=== PATIENT | male | born 1975 | race Caucasian/White ===

== ENCOUNTER 2017-09-12 20:14 | Emergency (ER) | payer BC, OTHER ==
[2017-09-12] MEDS ORDERED: IBUPROFEN 800 MG TAB PO STA (21:23)
[2017-09-12] MEDS ORDERED: ACET/COD 300 MG/30 MG STARTER PACK 6 TAB BTL PO STA (21:24)
--- NOTE | 2017-09-12 21:27 | ED ---
ENT HPI - General Chief complaint: ENT Stated complaint: Sinus infection Time Seen by Provider: 09/12/17 21:12 Source: patient Mode of arrival: ambulatory Limitations: no limitations - History of Present Illness Initial comments: This patient is a 42-year-old man with history of dental caries who presents with maxillary facial pain. The pain came on number of hours ago. He states that he had some old doses of penicillin left, and he took 2 doses of that and has not had relief yet. He denies any fever or chills. Patient has not had any ocular symptoms. MD complaint: tooth pain Onset/Timin -: hour(s) Time: 11:00 Location: tooth # Severity: severe Quality: aching Consistency: constant Improves with: none Worsens with: none Context- Dental: history of dental caries Associated Symptoms: gum swelling, toothache - Related Data Previous Rx's Medication Instructions Recorded Amoxicillin 500 mg PO Q8H #21 capsule 09/12/17 Ibuprofen [Motrin] 600 mg PO Q8HR PRN #20 tab 09/12/17 Allergies Allergy/AdvReac Type Severity Reaction Status Date / Time No Known Allergies Allergy Verified 09/12/17 20:30 Review of Systems ROS Statement: Those systems with pertinent positive or pertinent negative responses have been documented in the HPI. ROS Other: All systems not noted in ROS Statement are negative. Constitutional: Denies: fever, chills Eyes: Denies: eye pain, vision change ENT: Reports: dental pain. Denies: ear pain, throat pain, hearing loss, congestion Respiratory: Denies: cough, dyspnea Cardiovascular: Denies: chest pain, palpitations Neurological: Denies: headache Past Medical History Past Medical History: No Reported History History of Any Multi-Drug Resistant Organisms: None Reported Past Surgical History: Hernia Repair Past Psychological History: No Psychological Hx Reported Smoking Status: Current every day smoker Past Alcohol Use History: None Reported Past Drug Use History: None Reported General Exam Limitations: no limitations General appearance: alert, in no apparent distress Head exam: Present: atraumatic, normocephalic, normal inspection Eye exam: Present: normal appearance, PERRL, EOMI. Absent: scleral icterus, conjunctival injection, nystagmus, periorbital swelling, periorbital tenderness ENT exam: Present: other ([place]) Neck exam: Present: normal inspection, full ROM. Absent: meningismus, lymphadenopathy Respiratory exam: Present: normal lung sounds bilaterally. Absent: respiratory distress, wheezes, rales, rhonchi, stridor Cardiovascular Exam: Present: regular rate, normal rhythm, normal heart sounds. Absent: systolic murmur, diastolic murmur, rubs, gallop Skin exam: Present: warm, dry, intact, normal color. Absent: rash Course Vital Signs 09/12/17 09/12/17 20:27 21:39 Temperature 98.6 F 98.5 F Pulse Rate 111 H 95 Respiratory 20 18 Rate Blood Pressure 147/80 148/90 O2 Sat by Pulse 99 99 Oximetry Disposition Clinical Impression: Pain due to dental caries Disposition: HOME SELF-CARE Condition: Good Instructions: Toothache (ED) Prescriptions: Amoxicillin 500 mg PO Q8H #21 capsule Ibuprofen [Motrin] 600 mg PO Q8HR PRN #20 tab PRN Reason: Pain Is patient prescribed a controlled substance at d/c from ED?: No Referrals: Inna Rodgers MD [Primary Care Provider] - 1-2 days
[2017-09-12 21:40] VITALS: PULSE 95; RESP 18; TEMP 98.5
[2017-09-12 21:42] VITALS: BP 148/90
== END 2017-09-12 21:39 | disposition home or self-care (01) ==
LOC: EC 20:14
DX: K02.9 Dental caries, unspecified (principal); K08.89 Other specified disorders of teeth and supporting structures; F17.200 Nicotine dependence, unspecified, uncomplicated
CPT/HCPCS: 99283

== ENCOUNTER → 2021-06-03 | Outpatient (CLI) | payer BC ==
--- NOTE | 2021-06-03 15:38 | NM ---
EXAMINATION TYPE: NM bone scan whole body DATE OF EXAM: 06/03/2021 COMPARISON: Thoracic spine from outside institution dated 23 May 2021 HISTORY: Pain in low back, fracture Delayed whole-body scanning was performed following the injection of 22 mCi Tc 99m MDP. Images acqui red 3 hours post injection. FINDINGS: Bandlike area of uptake is present at approximately T11 level consistent with compression fracture. S oft tissue uptake is within normal limits. There is a spinal curvature. Uptake within the shoulders, feet, sternoclavicular joints is likely degenerative. Uptake in the maxilla and mandible is likely du e to periodontal disease. IMPRESSION: Findings insistent with compression fracture T11 level
== END | disposition home or self-care (01) ==
LOC: RADNMMAIN 10:51
PROVIDERS: ATTEND Physical Medicine & Rehabilitation
DX: M48.54XA Collapsed vertebra, not elsewhere classified, thoracic region, initial encounter for fracture (principal); M47.816 Spondylosis without myelopathy or radiculopathy, lumbar region
CPT/HCPCS: 78306; A9503

== ENCOUNTER → 2024-04-22 | Outpatient (CLI) | payer OTHER ==
--- NOTE | 2024-04-23 09:28 | MR ---
INDICATION: Patient age:Male; 49 years old; Reason for study: G45.9 TRANSIENT CEREBRAL ISCHEMIC ATTACK, UNSPECIF; PHH. COMPARISON: None available. TECHNIQUE: Multi planar, multi sequence imaging was performed through the brain. The patient was then given 10.5 cc of Gadobutrol intravenously and multi planar, T1 fat-saturation images were obtained. FINDINGS: The rodarte-white junctions, ventricular system, basal cisterns appear unremarkable. Age-appropriate cer ebral parenchymal volume. Diffusion-weighted imaging shows no evidence of restricted diffusion to sug gest acute/subacute infarct. Intracranial arterial flow voids are maintained. Midline structures show no abnormality. Scattered foci of high T2/FLAIR signal intensity are seen within the supratentorial periventricular white matter. Approximately 20 foci identified. Example includes a left posterior fro ntal subcortical white matter focus measuring up to 6 mm (series 601, image 24). The susceptibility w eighted images do not reveal any evidence for micro-hemorrhage. After administration of gadolinium, n o abnormal enhancement is seen. The bone marrow signal is within normal limits. The paranasal sinuses and globes are unremarkable. L eft mastoid effusion. IMPRESSION: 1. No evidence of intracranial mass, acute/subacute infarct, or abnormal enhancement. 2. Scattered nonspecific white matter changes, likely related to small vessel ischemic disease versus other etiologies such as demyelination versus migraine versus other. [facility], , 04/23/2024 9:26 AM
== END | disposition home or self-care (01) ==
LOC: RADMRIMAIN 19:33
PROVIDERS: ATTEND Internal Medicine Geriatric Medicine
DX: G45.9 Transient cerebral ischemic attack, unspecified (principal); R90.82 White matter disease, unspecified
CPT/HCPCS: 70553; A9585